=== PATIENT | male | born 1995 | race Caucasian/White ===

== ENCOUNTER 2016-10-10 12:51 | Emergency (ER) | payer OTHER ==
[2016-10-10 12:56] VITALS: BP 142/64; PULSE 110; TEMP 98; BMI 24.2
[2016-10-10] MEDS ORDERED: IBUPROFEN 400 MG TABLET (FP) PO ONE ×2 (13:11→13:13)
--- NOTE | 2016-10-10 13:22 | PDOC ---
History of Present Illness - General Chief Complaint: Injury Stated Complaint: LT SHOULDER PAIN Time Seen by Provider: 10/10/16 13:02 History Source: Patient Exam Limitations: No Limitations - History of Present Illness Initial Comments: 10/10/16 13:14 21 yr male with injury to right shoulder today fell walking up the stairs. no head trauma. Occurred: reports: just prior to arrival Severity: reports: moderate Pain Location: reports: upper extremity (right shoulder) Method of Injury: Yes: fall Loss of Consciousness: no loss of consciousness Past History - Travel Traveled outside of the country in the last 30 days: No Close contact w/someone who was outside of country & ill: No - Past Medical History Allergies/Adverse Reactions: Allergies Allergy/AdvReac Type Severity Reaction Status Date / Time No Known Allergies Allergy Verified 10/10/16 12:53 Home Medications: Ambulatory Orders NK [No Known Home Medication] 10/10/16 Asthma: Yes - Psycho/Social/Smoking Cessation Hx Suicidal Ideation: No Smoking History: Current every day smoker Have you smoked in the past 12 months: Yes Number of Cigarettes Smoked Daily: 20 Information on smoking cessation initiated: Yes 'Breaking Loose' booklet given: 10/10/16 Hx Alcohol Use: No Drug/Substance Use Hx: No Substance Use Type: None *Physical Exam - Vital Signs Last Vital Signs Temp Pulse Resp BP Pulse Ox 98.0 F 110 H 18 142/64 100 10/10/16 12:53 10/10/16 12:53 10/10/16 12:53 10/10/16 12:53 10/10/16 12:53 - Physical Exam General Appearance: Yes: Nourished, Appropriately Dressed HEENT: positive: EOMI, PRABHAKAR, TMs Normal, Pharynx Normal Neck: positive: Supple Respiratory/Chest: positive: Lungs Clear, Normal Breath Sounds Cardiovascular: positive: Regular Rhythm, Regular Rate Extremity: positive: Normal Capillary Refill, Normal Inspection, Tender ( anterior humeral head right side) Integumentary: positive: Normal Color, Dry, Warm Neurologic: positive: Fully Oriented, Alert, Normal Mood/Affect, Normal Response , Motor Strength 5/5 Procedures - Splinting Sling: Yes (right arm ) ED Treatment Course - RADIOLOGY Radiology Studies Ordered: Category Date Time Status SHOULDER-RIGHT [RAD] Stat Radiology 10/10/16 13:11 Ordered Medical Decision Making - Medical Decision Making 10/10/16 14:16 cc: right arm shoulder injury s/p fall will xray to r/o fracture nv intact pain limiting ROM however pt is able to extend at 90 degrees and slightly abduct *DC/Admit/Observation/Transfer Diagnosis at time of Disposition: Shoulder contusion Qualifiers: Encounter type: initial encounter Laterality: right Qualified Code(s): S40.011A - Contusion of right shoulder, initial encounter - Discharge Dispostion Disposition: HOME Condition at time of disposition: Good - Referrals Referrals: Brady Michaud MD [Staff Physician] - - Patient Instructions Additional Instructions: apply ice every 2hrs for 20 minutes for the next 2 days while awake take ibuprofen 800mg every 6hrs for pain as needed use the sling while awake, remove to sleep and bathe, Do not drive with sling in place for the next 2 days follow with the orthopedist for follow up in 3-5 days if symptoms worsen or persist
== END 2016-10-10 14:21 | disposition home or self-care (01) ==
LOC: JERFT 12:51
DX: S40.011A Contusion of right shoulder, initial encounter (principal); W10.8XXA Fall (on) (from) other stairs and steps, initial encounter; Y93.89 Activity, other specified; Y92.89 Other specified places as the place of occurrence of the external cause; F17.210 Nicotine dependence, cigarettes, uncomplicated
CPT/HCPCS: 73030-TC-RT; 99281-25

== ENCOUNTER 2016-10-20 15:05 | Emergency (ER) | payer OTHER ==
[2016-10-20 15:11] VITALS: BP 130/87; TEMP 99.6; BMI 23.5
[2016-10-20] MEDS ORDERED: IBUPROFEN 600 MG TABLET (FP) PO ONE ×3 (16:04→16:21)
--- NOTE | 2016-10-20 16:04 | PDOC ---
History of Present Illness - General Chief Complaint: Back Pain Stated Complaint: BACK PAIN Time Seen by Provider: 10/20/16 15:35 History Source: Patient Exam Limitations: No Limitations - History of Present Illness Initial Comments: 10/20/16 16:04 My chief complaint: lower back bilaterally that radiates upward slightly yesterday and dry cough for a few days with slight sore throat and low-grade fever today. History of present illness: Patient is a 21-year-old male with h/o asthma and opiate addiction that he reports one year last use of Percocet one year ago. Patient reports that he used heroin 1 month ago intranasally. Patient woke up yesterday with lower back pain that radiates upward slightly that is severe worse with coughing and movement. Patient denies any radiation of pain down the legs or any numbness of legs or saddle anesthesia or incontinency. Patient denies any heavy lifting or any injury that could've caused lower back pain. Patient denies a history of lower back pain. Patient's father gave him gabapentin 600 mg yesterday for his back pain. He reports that he took one Xanax yesterday because he wanted to get into a drug treatment program in [place] however went there and was not able to get in due to being in [facility] resident with a [facility] insurance. Patient didn't adamantly denies taking more than one Xanax yesterday or previously. He reports that his sole goal in taking the Xanax yesterday was to test positive to be able to get into a detox drug program. Patient parents wants him to go to detox and drug treatment program however patient does not think that he needs a detox program since he has not been using daily for approximately one month. He denies any drinking. He reports having slight sore throat. Patient denies any sick contacts or recent travel. She reports the pain in his back currently as a 10 out of 10 did not take anything for pain today and is worse with sitting or coughing. He denies any shortness of breath. Patient denies sitting or lying on the same position without moving for long hours or any swelling of his extremities or any history of DVTs or PEs. Pt. goes to [facility] program due to being arrested few months ago. 10/20/16 16:07 10/20/16 16:12 10/20/16 16:13 10/20/16 17:47 Timing/Duration: getting worse Severity: severe (lower back pain ) Associated Symptoms: reports: cough, other (lower back pain b/l radiates upwards slightly b/l since yesterday ) Past History - Past Medical History Allergies/Adverse Reactions: Allergies Allergy/AdvReac Type Severity Reaction Status Date / Time Penicillins Allergy Verified 10/20/16 15:09 Home Medications: Ambulatory Orders Ibuprofen 600 mg PO Q6H PRN #18 tablet 10/20/16 Asthma: Yes Psychiatric Problems: Yes (anxiety) - Psycho/Social/Smoking Cessation Hx Suicidal Ideation: No Smoking History: Current every day smoker Have you smoked in the past 12 months: Yes Number of Cigarettes Smoked Daily: 20 Information on smoking cessation initiated: No 'Breaking Loose' booklet given: 10/10/16 Hx Alcohol Use: No Drug/Substance Use Hx: No Substance Use Type: None Review of Systems - Review of Systems Able to Perform ROS?: Yes Constitutional: No: Symptoms Reported HEENTM: Yes: Symptoms Reported, Throat Pain (slight) Respiratory: Yes: Cough. No: Shortness of Breath, SOB with Exertion, SOB at Rest, Stridor, Wheezing, Productive cough Cardiac (ROS): No: Symptoms Reported ABD/GI: No: Symptoms Reported : No: Symptoms Reported Musculoskeletal: Yes: Back Pain (b/l lumbar radiates to upper lumbar/lower thoracic b/l) Integumentary: No: Symptoms Reported Neurological: No: Symptoms reported *Physical Exam - Vital Signs Last Vital Signs Temp Pulse Resp BP Pulse Ox 99.6 F 132 H 18 130/87 98 10/20/16 15:09 10/20/16 15:09 10/20/16 15:09 10/20/16 15:10/20/16 15:09 - Physical Exam General Appearance: Yes: Appropriately Dressed HEENT: positive: TMs Normal, Pharyngeal Erythema, Nasal Congestion. negative: Tonsillar Exudate, Tonsillar Erythema, Rhinorrhea Neck: negative: Lymphadenopathy (R), Lymphadenopathy (L) Respiratory/Chest: positive: Lungs Clear, Normal Breath Sounds. negative: Chest Tender, Respiratory Distress Cardiovascular: positive: Regular Rhythm, Regular Rate, S1, S2 Gastrointestinal/Abdominal: positive: Normal Bowel Sounds, Soft. negative: Tender, Organomegaly, Increased Bowel Sounds, Distended, Guarding, Rebound, Tenderness, Hepatomegaly, Spleenomegaly Musculoskeletal: positive: Normal Inspection, Decreased Range of Motion (from waist ), Other (b/l lumbar/thoracic paraspinal muscle tenderness). negative: CVA Tenderness, CVA Tenderness (R), CVA Tenderness (L), Vertebral Tenderness Extremity: positive: Normal Capillary Refill, Normal Inspection, Normal Range of Motion. negative: Tender, Swelling Integumentary: positive: Normal Color Neurologic: positive: Alert, Normal Response, Motor Strength 5/5 (motor strength 4/5), Respond to painful stimul (b/l legs ), Responsive, Other ( negative SLR b/l ). negative: Sensory Deficit (b/l legs) Deep Tendon Reflexes: Knee (L): 3+, Knee (R): 3+ Medical Decision Making - Medical Decision Making 10/20/16 16:12 Patient is a 21-year-old male with h/o asthma and opiate addiction that he reports one year last use of Percocet one year ago. Patient reports that he used heroin 1 month ago intranasally. Patient woke up yesterday with lower back pain that radiates upward slightly that is severe worse with coughing and movement. Patient denies any radiation of pain down the legs or any numbness of legs or saddle anesthesia or incontinency. Patient denies any heavy lifting or any injury that could've caused lower back pain. Patient denies a history of lower back pain. Patient's father gave him gabapentin 600 mg yesterday for his back pain. He reports that he took one Xanax yesterday because he wanted to get into a drug treatment program in [place] however went there and was not able to get in due to being in [facility] resident with a [facility] insurance. Patient didn't adamantly denies taking more than one Xanax yesterday or previously. He reports that his sole goal in taking the Xanax yesterday was to test positive to be able to get into a detox drug program. Patient parents wants him to go to detox and drug treatment program however patient does not think that he needs a detox program since he has not been using daily for approximately one month. He denies any drinking. He reports having slight sore throat. Patient denies any sick contacts or recent travel. He reports the pain in his back currently as a 10 out of 10 did not take anything for pain today and is worse with sitting or coughing. He denies any shortness of breath. Patient denies sitting or lying on the same position without moving for long hours or any swelling of his extremities or any history of DVTs or PEs. Pt. requesting urine toxicology. Pt. is with his father who is with him and wants him to go to detox/rehab today. He refuses to have his blood drawn will not be able to go to detox without medical clearance patient adamantly refuses low grade oral temp, tachycardia due to dehydration dry cough, nasal congestion r/o influenza A or B r.o strep throat pharyngitis h/o opioid use lower back pain b/l PLAN: EKG CBC with diff refused CMP refused mg refused SW from ER Caroline came to speak to pt. ibuprofen 600 mg po now urine toxicology influenza A & B rapid negative throat C & S negative ibuprofen 600 mg po now than every 6 hrs prn pain # 18 follow up with orthopedist 10/20/16 16:14 10/20/16 16:24 10/20/16 16:34 10/20/16 17:26 list of NA meeting given and out pt Substance Use Clinics 10/20/16 17:29 10/20/16 18:10 pt was given one picture of water to drink pulse currently 98 will discharge to home Laboratory Tests 10/20/16 16:14 Opiates Screen Negative Methadone Screen Negative Barbiturate Screen Negative Phencyclidine Screen Negative Ur Amphetamines Screen Negative MDMA (Ecstasy) Screen Negative Benzodiazepines Screen Positive Cocaine Screen Negative U Marijuana (THC) Screen Negative 10/20/16 18:11 10/20/16 18:12 10/20/16 18:12 *DC/Admit/Observation/Transfer Diagnosis at time of Disposition: History of opioid abuse Back pain Qualifiers: Back pain location: low back pain Chronicity: acute Back pain laterality: bilateral Sciatica presence: without sciatica Qualified Code(s): M54.5 - Low back pain - Discharge Dispostion Disposition: HOME Condition at time of disposition: Stable - Prescriptions Prescriptions: Ibuprofen 600 mg PO Q6H PRN #18 tablet PRN Reason: Pain - Referrals Referrals: Arturo Wood MD [Staff Physician] - - Patient Instructions Additional Instructions: May follow up with orthopedist if pain continues in lower back avoid any strenuous activities or exercise You may follow up with outpatient substance abuse programs is given to you and NA meetings Return to emergency room if pain worsens or any numbness of groin or legs Patient voiced understanding of discharge instructions and all questions were answered
[2016-10-20 18:02] LABS: URINE MARIJUANA THC NEGATIVE ng/ml (CUTOFF=50)
[2016-10-20 18:12] VITALS: PULSE 98
[2016-10-20 21:17] LABS: URINE APPEARANCE CLEAR; URINE BILIRUBIN NEGATIVE (NEGATIVE); URINE BLOOD NEGATIVE (NEGATIVE); URINE COLOR LTYELLOW; URINE GLUCOSE (UA) NEGATIVE (NEGATIVE); URINE KETONE NEGATIVE (NEGATIVE); URINE LEUK ESTERASE NEGATIVE (NEGATIVE); URINE NITRITE NEGATIVE (NEGATIVE); URINE PROTEIN NEGATIVE (NEGATIVE); URINE UROBILINOGEN NEGATIVE E.U./dl (0.2-1.0)
== END 2016-10-20 18:27 | disposition home or self-care (01) ==
LOC: JERFT 15:05
DX: M54.5 Low back pain (principal); F11.10 Opioid abuse, uncomplicated
CPT/HCPCS: 80307; 81003; 87070; 87430; 87804; 99281-25

== ENCOUNTER 2017-04-09 10:37 | Emergency (ER) | payer OTHER ==
[2017-04-09 10:40] VITALS: BP 138/97; PULSE 107; TEMP 99; BMI 21.9
[2017-04-09] MEDS ORDERED: KETOROLAC TROMETHAMINE 60 MG/2 ML VIAL IM ONE (11:29)
[2017-04-09] MEDS ORDERED: KETOROLAC TROMETHAMINE 60 MG/2 ML VIAL ONE (11:31)
[2017-04-09] MEDS ORDERED: IBUPROFEN 600 MG TABLET (FP) PO ONE (11:34)
--- NOTE | 2017-04-09 11:37 | PDOC ---
History of Present Illness - General Chief Complaint: Pain Stated Complaint: RT THUMB, FINGER NUMBNESS Time Seen by Provider: 04/09/17 11:13 History Source: Patient Exam Limitations: No Limitations - History of Present Illness Initial Comments: 04/09/17 11:31 21 yr male with right arm pain to neck for 4 days after waking up with pain, burning sensation to right arm and numbness to the right first and second finger. Pt denies fall. no SOB or chest pain . Pt also c/o pain to the right 4th digit. no medical history or allergies. Severity: mild Past History - Past Medical History Allergies/Adverse Reactions: Allergies Allergy/AdvReac Type Severity Reaction Status Date / Time Penicillins Allergy Verified 04/09/17 10:40 Home Medications: Ambulatory Orders Cyclobenzaprine HCl [Flexeril -] 5 mg PO TID PRN #21 tablet 04/09/17 Naproxen [Naprosyn -] 500 mg PO BID PRN #28 tablet 04/09/17 Asthma: Yes Psychiatric Problems: Yes (anxiety) - Psycho/Social/Smoking Cessation Hx Anxiety: Yes Suicidal Ideation: No Smoking History: Never smoked Have you smoked in the past 12 months: Yes Number of Cigarettes Smoked Daily: 20 'Breaking Loose' booklet given: 10/10/16 Hx Alcohol Use: No Drug/Substance Use Hx: No Substance Use Type: Marijuana Review of Systems - Review of Systems Able to Perform ROS?: Yes Is the patient limited Romansh proficient: No Constitutional: No: Symptoms Reported HEENTM: No: Symptoms Reported Respiratory: No: Symptoms reported Cardiac (ROS): No: Symptoms Reported ABD/GI: No: Symptoms Reported : No: Symptoms Reported Musculoskeletal: Yes: See HPI *Physical Exam - Vital Signs Last Vital Signs Temp Pulse Resp BP Pulse Ox 99.0 F 107 H 20 138/97 100 04/09/17 10:37 04/09/17 10:37 04/09/17 10:37 04/09/17 10:37 04/09/17 10:37 - Physical Exam General Appearance: Yes: Nourished, Appropriately Dressed HEENT: positive: EOMI, PRABHAKAR, Normal ENT Inspection, TMs Normal, Pharynx Normal Neck: positive: Supple, Tender lateral (right side). negative: Tender, Tender midline, Thyromegaly Respiratory/Chest: positive: Lungs Clear, Normal Breath Sounds. negative: Chest Tender Cardiovascular: positive: Regular Rhythm, Regular Rate Gastrointestinal/Abdominal: positive: Normal Bowel Sounds, Soft Musculoskeletal: positive: Normal Inspection Extremity: positive: Normal Capillary Refill, Normal Inspection, Normal Range of Motion, Tender (4th finger right hand at the mcp , nv intact to the right first and second digit, decreased sensation), Other (FROM right arm, shoulder, pain reporduced to the right trapezius muscle ) Integumentary: positive: Normal Color, Dry, Warm Neurologic: positive: Fully Oriented, Alert, Normal Mood/Affect, Normal Response , Motor Strength 12/16 ED Treatment Course - RADIOLOGY Radiology Studies Ordered: Category Date Time Status FINGER(S) RIGHT [RAD] Stat Radiology 04/09/17 11:29 Ordered SPINE-CERVICAL [RAD] Stat Radiology 04/09/17 11:29 Ordered Medical Decision Making - Medical Decision Making 04/09/17 11:35 cc: right neck pain with right shoulder pain to fingers with numbness to first and second digit started after wakin gup after sleeping on the arm 4 days ago pt has neck pain reproducable with movement and touch 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 will get xray of neck and right finger that is tender with ROM motrin for pain 04/09/17 11:39 04/09/17 19:51 negative xrays dc inst given to pt who agrees with plan of care all questions asked and answered 04/09/17 19:51 *DC/Admit/Observation/Transfer Diagnosis at time of Disposition: Neck pain, acute, Cervical radiculopathy, Pain of finger of right hand - Discharge Dispostion Disposition: HOME Condition at time of disposition: Good - Prescriptions Prescriptions: Cyclobenzaprine HCl [Flexeril -] 5 mg PO TID PRN #21 tablet PRN Reason: Muscle Spasms Naproxen [Naprosyn -] 500 mg PO BID PRN #28 tablet PRN Reason: Pain - Referrals Referrals: Jessica Lawrence MD [Primary Care Provider] - Arturo Wood MD [Staff Physician] - - Patient Instructions Additional Instructions: take motrin as directed for pain take flexeril for muscle spasm as needed apply warm compresses to the area of pain every 3-4 hrs for 20 minutes follow with the orthopedist Dr. Wood for follow up this week see if your pillow and mattress are comfortable or this can make symptoms worse
== END 2017-04-09 11:54 | disposition home or self-care (01) ==
LOC: JERFT 10:37
PROC: 3E0233Z Introduction of Anti-inflammatory into Muscle, Percutaneous Approach (ICD-10-PCS; principal; 2017-04-09)
DX: M54.12 Radiculopathy, cervical region (principal)
CPT/HCPCS: 72050-TC; 73140-TC-RT; 96372; 99281-25

== ENCOUNTER 2017-04-10 19:20 | Emergency (ER) | payer OTHER ==
[2017-04-10 19:39] VITALS: TEMP 98.2; BMI 21.9
[2017-04-10] MEDS ORDERED: IBUPROFEN 600 MG TABLET (FP) PO ONE ×2 (21:48→22:17)
--- NOTE | 2017-04-10 21:51 | PDOC ---
History of Present Illness - General History Source: Patient Exam Limitations: No Limitations <Stephani Sparks - Last Filed: 04/11/17 06:18> - General History Source: Patient Exam Limitations: No Limitations - History of Present Illness Initial Comments: 04/10/17 21:58 The patient is a 21 year old male with significant past medical history of asthma who presents to the ED for less than 24 hours of bilateral lower abdominal pain, suprapubic pain, hematuria and dysuria.. Patient reports he was in his usual state of health prior to going to bed last night when he woke up around 4am with bilateral abdominal pain and suprapubic pain. Patient reports associated dysuria and hematuria. Denies nausea, vomiting, or diarrhea. Denies testicular pain or penile discharge. Denies flank pain. Patient states having no history of kidney stones or UTI in the past. The patient denies fever, chills, diaphoresis, cough, SOB, chest pain, and palpitations. Patient was seen here yesterday for right neck pain and right shoulder pain, where he was treated and discharged with flexeril and naprosyn. States he last took both medications prior to going to work this morning around 4am. Allergies: penicillin Social History: No alcohol, tobacco, or drug use reported. Past Surgical History: None reported PCP: Dr. Jessica Lawrence <Shivani Norman - Last Filed: 04/11/17 06:31> - General Chief Complaint: Hematuria Stated Complaint: HEMATURIA Past History - Past Medical History Asthma: Yes Psychiatric Problems: Yes (anxiety) - Psycho/Social/Smoking Cessation Hx Anxiety: Yes Suicidal Ideation: No Smoking History: Never smoked Have you smoked in the past 12 months: Yes Number of Cigarettes Smoked Daily: 20 Information on smoking cessation initiated: No 'Breaking Loose' booklet given: 10/10/16 Hx Alcohol Use: No Drug/Substance Use Hx: No Substance Use Type: Marijuana <Stephani Sparks - Last Filed: 04/11/17 06:18> <Shivani Norman - Last Filed: 04/11/17 06:31> - Past Medical History Allergies/Adverse Reactions: Allergies Allergy/AdvReac Type Severity Reaction Status Date / Time Penicillins Allergy Verified 04/10/17 19:39 Home Medications: Ambulatory Orders Cyclobenzaprine HCl [Flexeril -] 5 mg PO TID PRN #21 tablet 04/09/17 Naproxen [Naprosyn -] 500 mg PO BID PRN #28 tablet 04/09/17 Sulfamethoxazole/Trimethoprim [Bactrim Ds -] 1 tab PO BID #14 tablet 04/11/17 Review of Systems - Review of Systems Able to Perform ROS?: Yes Comments:: 04/10/17 21:58 GENERAL/CONSTITUTIONAL: No fever or chills. No weakness. HEAD, EYES, EARS, NOSE AND THROAT: No change in vision. No ear pain or discharge. No sore throat. CARDIOVASCULAR: No chest pain or shortness of breath. RESPIRATORY: No cough, wheezing, or hemoptysis. GASTROINTESTINAL: +bilateral lower abdominal pain, suprapubic pain No nausea, vomiting, diarrhea or constipation. GENITOURINARY: +dysuria, hematuria MUSCULOSKELETAL: No joint or muscle swelling or pain. No neck or back pain. SKIN: No rash NEUROLOGIC: No headache, vertigo, loss of consciousness, or change in strength/ sensation. ENDOCRINE: No increased thirst. No abnormal weight change. HEMATOLOGIC/LYMPHATIC: No anemia, easy bleeding, or history of blood clots. ALLERGIC/IMMUNOLOGIC: No hives or skin allergy. <Shivani Norman - Last Filed: 04/11/17 06:31> *Physical Exam - Vital Signs Last Vital Signs Temp Pulse Resp BP Pulse Ox 98.2 F 87 18 121/72 99 04/10/17 19:34 04/10/17 19:34 04/10/17 19:34 04/10/17 19:34 04/10/17 19:34 <Stephani Sparks - Last Filed: 04/11/17 06:18> - Vital Signs Last Vital Signs Temp Pulse Resp BP Pulse Ox 98.2 F 87 18 121/72 99 04/10/17 19:34 04/10/17 19:34 04/10/17 19:34 04/10/17 19:34 04/10/17 19:34 - Physical Exam Comments: 04/10/17 21:58 GENERAL: Awake, alert, and fully oriented, in no acute distress HEAD: No signs of trauma EYES: PERRLA, EOMI, sclera anicteric, conjunctiva clear ENT: Auricles normal inspection, hearing grossly normal, nares patent, oropharynx clear without exudates. Moist mucosa NECK: Normal ROM, supple, no lymphadenopathy, JVD, or masses LUNGS: Breath sounds equal, clear to auscultation bilaterally. No wheezes, and no crackles HEART: Regular rate and rhythm, normal S1 and S2, no murmurs, rubs or gallops ABDOMEN: Soft, bilateral lower quadrants tenderness, surprapubic tenderness, normoactive bowel sounds. No guarding, no rebound. No masses MUSCULOSKELETAL: Right CVA tenderness EXTREMITIES: Normal range of motion, no edema. No clubbing or cyanosis. No cords, erythema, or tenderness NEUROLOGICAL: Cranial nerves II through XII grossly intact. Normal speech, normal gait SKIN: Warm, Dry, normal turgor, no rashes or lesions noted. <Shivani Norman - Last Filed: 04/11/17 06:31> Procedures - Bedside Ultrasound Other: renal us <Stephani Sparks - Last Filed: 04/11/17 06:18> ED Treatment Course - LABORATORY CBC & Chemistry Diagram: 04/11/17 03:30 04/11/17 03:30 <Stephani Sparks - Last Filed: 04/11/17 06:18> - LABORATORY CBC & Chemistry Diagram: 04/11/17 03:30 04/11/17 03:30 - RADIOLOGY Radiograph Interpretation: 04/11/17 00:37 EXAM: CT abdomen and pelvis without contrast Reviewed by Imaging staff occupational therapist: FINDINGS: Lung bases are clear. The visualized cardiac chambers are normal size and configuration. Normal unenhanced liver, gallbladder, pancreas, spleen, adrenal glands and kidneys. The stomach and abdominal small and large bowel are normal. There is no aortic aneurysm. There is no significant retroperitoneal lymphadenopathy. The pelvic small and large bowel are normal. There is a tiny appendicolith but no appendiceal inflammation The urinary bladder and prostate gland are normal. No pelvic free fluid is identified. There is no significant pelvic lymphadenopathy. IMPRESSION: No localizing signs for acute pathology. 04/11/17 06:31 EXAM: CT abdomen and pelvis with contrast Reviewed by Imaging staff occupational therapist: FINDINGS:Lung bases are clear. The visualized cardiac chambers are normal size and configuration. Normal liver, gallbladder, pancreas, spleen, adrenal glands and kidneys. The stomach and abdominal small and large bowel are normal. There is no aortic aneurysm. There is no significant retroperitoneal lymphadenopathy. The pelvic small and large bowel are normal. There is no evidence of appendicitis, although an appendicolith is noted. The urinary bladder and prostate gland are normal. No pelvic free fluid is identified. There is no significant pelvic lymphadenopathy. IMPRESSION: No acute pathology. <Shivani Norman - Last Filed: 04/11/17 06:31> Medical Decision Making - Medical Decision Making 04/10/17 21:49 21 yo M with no pmhx here with c/o bilat lower abd pain, suprapubic pain, dysuria, and hematuria. started today. no flank pain. no n/v nof/c no new sexual encounters. no testicular pain. no penile dc. no h/o uti. on exam awake alert lungs clear heart rrr no mrg abd soft bilat lower quad ttp, suprapubic ttp. no rebound, no guarding. right cva ttp. ext wwp skin warm and dry. plan differential uti, renal colic, plan ua labs bedside renal us. 04/11/17 04:33 focused ED ultrasound renal , indication hematuria, findings: bilateral kidneys scanned in two planes. no hydronephrosis noted. bladder nondistendd. impression: normal renal ultrasound. raisa 04/11/17 06:15 ct with appendicolith otherwise normal due to rlq ttp, pt rescanned with iv contrast. still no signs of appendicitis. only appendicolith. dc with tx for uti due to sxs of dysuria and hematuria. given azithromycin 2 g to treat any potential std. ( pt pcn allergic ) fu urology. 04/11/17 06:18 <Stephani Sparks - Last Filed: 04/11/17 06:18> *DC/Admit/Observation/Transfer - Discharge Dispostion Admit: No <Stephani Sparks - Last Filed: 04/11/17 06:18> - Attestations Scribe Attestion: 04/10/17 21:59 Documentation prepared by Shivani Norman, acting as medical librarian for Stephani Sparks MD <Shivani Norman - Last Filed: 04/11/17 06:31> Diagnosis at time of Disposition: UTI (urinary tract infection), Hematuria - Prescriptions Prescriptions: Sulfamethoxazole/Trimethoprim [Bactrim Ds -] 1 tab PO BID #14 tablet - Referrals Referrals: Jessica Lawrence MD [Primary Care Provider] - Parish Mathews MD [Staff Physician] - - Patient Instructions Printed Discharge Instructions: Urinary Tract Infection Additional Instructions: you should take bactrim twice daily x 7 days. folllow up with urologist ( call dR Mathews to schedule see referral info) to be sure that the blood in your urine resolves. copie of your ct scan is attached to show your doctor as well as blood work. return for worsening pain, fever or any concerns. take ibuprofn 600 mg every 8 hours as needed for pain. - Post Discharge Activity Work/School Note: Back to Work
[2017-04-10 21:53] LABS: URINE APPEARANCE CLOUDY; URINE BILIRUBIN NEGATIVE (NEGATIVE); URINE BLOOD 3+ (NEGATIVE); URINE COLOR YELLOW; URINE GLUCOSE (UA) NEGATIVE (NEGATIVE); URINE KETONE NEGATIVE (NEGATIVE); URINE LEUK ESTERASE NEGATIVE (NEGATIVE); URINE NITRITE NEGATIVE (NEGATIVE); URINE UROBILINOGEN NEGATIVE mg/dL (0.2-1.0)
[2017-04-10 22:03] LABS: URINE PROTEIN 1+ (NEGATIVE)
[2017-04-10 22:04] LABS: URINE MUCUS MODERATE; URINE RBC 1109 /hpf (0-3); URINE WBC 30 /hpf (3-5)
[2017-04-10 22:33] LABS: BASOPHIL 0.4 % (0-2.0); EOSINOPHIL 2.2 % (0-4.5); MCH 28.7 pg (25.7-33.7); MCHC 33.5 g/dl (32.0-35.9); MEAN CELL VOLUME 85.7 fl (80-96); MEAN PLT VOLUME 8.5 fl (7.5-11.1); NEUTROPHILS 61.3 % (42.8-82.8); PLATELET COUNT 317 K/MM3 (134-434); RDW 13.1 % (11.9-15.9); WHITE BLOOD COUNT 10.1 K/mm3 (4.0-10.0)
[2017-04-10 23:00] LABS: ALBUMIN 4.2 g/dl (3.4-5.0); ANION GAP 6 (8-16); BILIRUBIN,TOTAL 0.3 mg/dL (0.2-1.0); CALCIUM 9.7 mg/dL (8.5-10.1); CO2 26 mmol/L (21-32); CREATININE 0.9 mg/dL (0.7-1.3); GLUCOSE,RANDOM 83 mg/dL (74-106); SGOT/AST 9 U/L (15-37); SGPT/ALT 17 U/L (12-78)
[2017-04-10 23:01] LABS: ALK PHOS 55 U/L (45-117)
[2017-04-11] MEDS ORDERED: KETOROLAC TROMETHAMINE 30 MG/1 ML VIAL IVPUSH ONE (01:15)
[2017-04-11] MEDS ORDERED: SULFAMETHOXAZOLE/TRIMETHOPRIM 800MG/160MG D.S. TABLET PO ONE (01:16)
[2017-04-11] MEDS ORDERED: SULFAMETHOXAZOLE/TRIMETHOPRIM 800MG/160MG D.S. TABLET ONE (02:27)
[2017-04-11] MEDS ORDERED: KETOROLAC TROMETHAMINE 30 MG/1 ML VIAL ONE ×2 (02:27→02:32)
[2017-04-11] MEDS ORDERED: SODIUM CHLORIDE 0.9% 1000 ML INFUS.BAG IV ONE (03:09)
[2017-04-11] MEDS ORDERED: morphine CARPU-JECT 4 MG/1 ML DISP.SYRIN IVPUSH ONE (03:15)
[2017-04-11] MEDS ORDERED: morphine CARPU-JECT 10 MG/1 ML DISP.SYRIN ONE (03:18)
[2017-04-11 03:40] LABS: BASOPHIL 0.7 % (0-2.0); EOSINOPHIL 2.6 % (0-4.5); MCH 28.7 pg (25.7-33.7); MCHC 33.6 g/dl (32.0-35.9); MEAN CELL VOLUME 85.5 fl (80-96); MEAN PLT VOLUME 8.5 fl (7.5-11.1); NEUTROPHILS 54.5 % (42.8-82.8); PLATELET COUNT 264 K/MM3 (134-434); WHITE BLOOD COUNT 7.8 K/mm3 (4.0-10.0)
[2017-04-11 04:46] LABS: ALBUMIN 4.2 g/dl (3.4-5.0); ANION GAP 5 (8-16); BILIRUBIN,TOTAL 0.3 mg/dL (0.2-1.0); CALCIUM 9.4 mg/dL (8.5-10.1); CO2 28 mmol/L (21-32); CREATININE 0.8 mg/dL (0.7-1.3); GLUCOSE,RANDOM 82 mg/dL (74-106); SGOT/AST 11 U/L (15-37); SGPT/ALT 19 U/L (12-78); TOT PROT 6.8 g/dl (6.4-8.2)
[2017-04-11 04:47] LABS: ALK PHOS 53 U/L (45-117)
[2017-04-11] MEDS ORDERED: AZITHROMYCIN 1 GM PACKET PO ONE (06:18)
[2017-04-11] MEDS ORDERED: AZITHROMYCIN 250 MG TABLET (FP) ONE (06:34)
[2017-04-11] MEDS ORDERED: AZITHROMYCIN 1 GM PACKET ONE (06:35)
[2017-04-11 06:42] VITALS: BP 118/76; PULSE 69
== END 2017-04-11 06:43 | disposition home or self-care (01) ==
LOC: JER 19:20
PROC: 3E033NZ Introduction of Analgesics, Hypnotics, Sedatives into Peripheral Vein, Percutaneous Approach (ICD-10-PCS; principal; 2017-04-10)
PROC: 3E0333Z Introduction of Anti-inflammatory into Peripheral Vein, Percutaneous Approach (ICD-10-PCS; 2017-04-10)
DX: N39.0 Urinary tract infection, site not specified (principal); R31.9 Hematuria, unspecified
CPT/HCPCS: 36415; 74176; 74177-TC; 80053; 81003; 81015; 85025; 96374; 96375; 99282-25; Q9967

== ENCOUNTER 2017-04-11 16:59 | Emergency (ER) | payer OTHER ==
[2017-04-11 17:05] VITALS: BP 123/93; PULSE 108; TEMP 98.3; BMI 21.9
--- NOTE | 2017-04-11 17:51 | PDOC ---
History of Present Illness - General Chief Complaint: Pain, Acute Stated Complaint: URINARY PROBLEM Time Seen by Provider: 04/11/17 17:28 - History of Present Illness Initial Comments: 04/11/17 17:51 Mr. Robledo is a 21 year old male with a significant past medical history of asthma and recent visit for abdominal pain (d/c this AM) who presents to the emergency department with severe abdominal pain starting this AM 2 hours after he returned home from the ER. He reports that the pain has been increasing throughout the day and was not helped by naproxen. 2 days ago he woke up at 4am with bilateral abdominal pain and suprapubic pain, dysuria, and hematuria. He then presented to the ER for his original workup. The patient denies chest pain, shortness of breath, headache and dizziness. Denies fever, chills, nausea, vomit, diarrhea and constipation. Denies current dysuria, frequency, urgency or hematuria. Allergies: Penicillins Past surgical history: Tonsillectomy Social history:Current 1/2 - 1 ppd smoker (4 year history). 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 No weakness. HEAD, EYES, EARS, NOSE AND THROAT: No change in vision. No ear pain or discharge. No sore throat. CARDIOVASCULAR: No chest pain or shortness of breath RESPIRATORY: No cough, wheezing, or hemoptysis. GASTROINTESTINAL: +Severe abdominal pain reported constantly throughout the day. No nausea, vomiting, diarrhea or constipation. GENITOURINARY: No dysuria, frequency, or change in urination. MUSCULOSKELETAL: No joint or muscle swelling or pain. No neck or back pain. SKIN: No rash NEUROLOGIC: No headache, vertigo, loss of consciousness, or change in strength/ sensation. ENDOCRINE: No increased thirst. No abnormal weight change HEMATOLOGIC/LYMPHATIC: No anemia, easy bleeding, or history of blood clots. ALLERGIC/IMMUNOLOGIC: +Evidence of psoriasis. No hives or skin allergy. *Physical Exam - Vital Signs Last Vital Signs Temp Pulse Resp BP Pulse Ox 98.3 F 108 H 18 123/93 100 04/11/17 17:01 04/11/17 17:01 04/11/17 17:01 04/11/17 17:01 04/11/17 17:01 - Physical Exam Comments: 04/11/17 17:51 GENERAL: Awake, alert, and fully oriented, in no acute distress HEAD: No signs of trauma, normocephalic, atraumatic EYES: PERRLA, EOMI, sclera anicteric, conjunctiva clear ENT: Auricles normal inspection, hearing grossly normal, nares patent, oropharynx clear without exudates. Moist mucosa NECK: Normal ROM, supple, no lymphadenopathy, JVD, or masses LUNGS: No distress, speaks full sentences, clear to auscultation bilaterally HEART: Regular rate and rhythm, normal S1 and S2, no murmurs, rubs or gallops, peripheral pulses normal and equal bilaterally. ABDOMEN: +Acutely tender with guarding in RLQ and bilateral upper quadrants. Pain radiates to R flank. Normoactive bowel sounds. EXTREMITIES: Normal inspection, Normal range of motion, no edema. No clubbing or cyanosis. NEUROLOGICAL: Cranial nerves II through XII grossly intact. Normal speech, normal gait, no focal sensorimotor deficits SKIN: Warm, Dry, normal turgor, no rashes or lesions noted. ED Treatment Course - LABORATORY CBC & Chemistry Diagram: 04/11/17 18:12 04/11/17 18:12 Medical Decision Making - Medical Decision Making 04/11/17 19:03 Patient presented in pain following d/c this AM at 0700. Pain has increased acutely. Will repeat labs and ultrasound appendix to look for changes. 4mg morphine and fluid given for pain control. Signing out to incoming team; will recommend admit for obs at the very least if no cause of pain found. *DC/Admit/Observation/Transfer Diagnosis at time of Disposition: Abdominal pain Qualifiers: Abdominal location: generalized Qualified Code(s): R10.84 - Generalized abdominal pain
--- NOTE | 2017-04-11 17:56 | PDOC ---
Attending Attestation - Resident Resident Name: Gabo Gomez - ED Attending Attestation I have performed the following: I have examined & evaluated the patient, The case was reviewed & discussed with the resident, I agree w/resident's findings & plan, Exceptions are as noted - HPI HPI: 21 yo M no significant PMH presents with RLQ abdominal pain. He states that he was having gross hematuria, then developed R lower abdominal pain. He was seen in the emergency department on the overnight shift, initially had a non-con CT to r/o stone, then a repeat CT with contrast for possible appy. He was noted to have an appendicolith. Now he states that he is feeling much worse and the pain has worsened. He is not vomiting. No f/c, diarrhea. No prior similar symptoms. No prior history of hematuria. - Physicial Exam PE: GENERAL: Awake, alert, and fully oriented, in no acute distress HEAD: No signs of trauma EYES: PERRLA, EOMI, sclera anicteric, conjunctiva clear ENT: Auricles normal inspection, hearing grossly normal, nares patent, oropharynx clear without exudates. Moist mucosa NECK: Normal ROM, supple, no lymphadenopathy, JVD, or masses LUNGS: Breath sounds equal, clear to auscultation bilaterally. No wheezes, and no crackles HEART: Regular rate and rhythm, normal S1 and S2, no murmurs, rubs or gallops ABDOMEN: Soft, +RLQ tenderness with guarding, normoactive bowel sounds. No rebound. No masses. +R flank tenderness. EXTREMITIES: Normal range of motion, no edema. No clubbing or cyanosis. No cords, erythema, or tenderness NEUROLOGICAL: Cranial nerves II through XII grossly intact. Normal speech, normal gait SKIN: Warm, Dry, normal turgor, no rashes or lesions noted. - Medical Decision Making Pt evaluated on the overnight shift for abdominal pain, pain is now worsening. D /w Dr. Sparks, who saw him in ED earlier, and his exam appears to be worse compared to prior. Will obtain ultrasound of his appendix, likely admit for abdominal pain and serial exams at the least.
[2017-04-11 18:33] LABS: BASOPHIL 0.4 % (0-2.0); MCH 28.5 pg (25.7-33.7); MCHC 33.6 g/dl (32.0-35.9); MEAN CELL VOLUME 84.9 fl (80-96); MEAN PLT VOLUME 8.4 fl (7.5-11.1); NEUTROPHILS 66.9 % (42.8-82.8); PLATELET COUNT 282 K/MM3 (134-434); WHITE BLOOD COUNT 9.8 K/mm3 (4.0-10.0)
[2017-04-11 18:35] LABS: URINE APPEARANCE SLCLOUDY; URINE BILIRUBIN NEGATIVE (NEGATIVE); URINE BLOOD 1+ (NEGATIVE); URINE COLOR LTYELLOW; URINE GLUCOSE (UA) NEGATIVE (NEGATIVE); URINE KETONE NEGATIVE (NEGATIVE); URINE LEUK ESTERASE NEGATIVE (NEGATIVE); URINE NITRITE NEGATIVE (NEGATIVE); URINE PROTEIN NEGATIVE (NEGATIVE); URINE UROBILINOGEN NEGATIVE mg/dL (0.2-1.0)
[2017-04-11] MEDS ORDERED: SODIUM CHLORIDE 1,000 ML IV STA (19:00)
[2017-04-11] MEDS ORDERED: morphine CARPU-JECT 4 MG/1 ML DISP.SYRIN IVPUSH ONE (19:00)
[2017-04-11] MEDS ORDERED: morphine CARPU-JECT 10 MG/1 ML DISP.SYRIN ONE ×2 (19:02→20:14)
[2017-04-11 19:05] LABS: ALBUMIN 4.5 g/dl (3.4-5.0); ANION GAP 4 (8-16); CALCIUM 9.4 mg/dL (8.5-10.1); CO2 29 mmol/L (21-32); CREATININE 0.9 mg/dL (0.7-1.3); GLUCOSE,RANDOM 74 mg/dL (74-106); SGOT/AST 12 U/L (15-37); SGPT/ALT 18 U/L (12-78)
[2017-04-11 19:06] LABS: ALK PHOS 53 U/L (45-117); BILIRUBIN,TOTAL 0.5 mg/dL (0.2-1.0); TOT PROT 6.8 g/dl (6.4-8.2)
[2017-04-11] MEDS ORDERED: morphine CARPU-JECT 2 MG/1 ML DISP.SYRIN IVPUSH ONE (19:59)
[2017-04-11 20:01] LABS: CALCIUM OXALATE CRYSTALS RARE /hpf (NONE SEEN); URINE MUCUS RARE; URINE RBC 17 /hpf (0-3); URINE WBC 1 /hpf (3-5)
--- NOTE | 2017-04-11 22:03 | PDOC ---
*Physical Exam - Vital Signs Last Vital Signs Temp Pulse Resp BP Pulse Ox 98.3 F 108 H 18 123/93 100 04/11/17 17:01 04/11/17 17:01 04/11/17 17:01 04/11/17 17:01 04/11/17 17:01 ED Treatment Course - LABORATORY CBC & Chemistry Diagram: 04/11/17 18:12 04/11/17 18:12 - ADDITIONAL ORDERS Additional order review: Laboratory Results 04/11/17 04/11/17 04/11/17 18:14 18:12 18:12 Sodium 138 Potassium 4.6 Chloride 105 Carbon Dioxide 29 Anion Gap 4 L BUN 10 Creatinine 0.9 Creat Clearance w eGFR > 60 Random Glucose 74 Calcium 9.4 Total Bilirubin 0.5 D AST 12 L ALT 18 Alkaline Phosphatase 53 Total Protein 6.8 Albumin 4.5 Lipase 113 Urine Color Ltyellow Urine Appearance Slcloudy Urine pH 6.0 Ur Specific Gary 1.025 Urine Protein Negative Urine Glucose (UA) Negative Urine Ketones Negative Urine Blood 1+ H Urine Nitrite Negative Urine Bilirubin Negative Urine Urobilinogen Negative Ur Leukocyte Esterase Negative Urine RBC 17 Urine WBC 1 Calcium Oxalate Crystal Rare Urine Mucus Rare 04/11/17 18:12 RBC 5.10 MCV 84.9 MCHC 33.6 RDW 13.0 MPV 8.4 Neutrophils % 66.9 D Lymphocytes % 24.7 D Monocytes % 6.0 Eosinophils % 2.0 Basophils % 0.4 - Medications Given in the ED: ED Medications Discontinued Medications Generic Name Dose Route Start Last Admin Trade Name Freq PRN Reason Stop Dose Admin Sodium Chloride 1,000 mls @ 1,000 mls/hr 04/11/17 19:00 04/11/17 19:06 Normal Saline - IV 04/11/17 19:59 1,000 mls/hr ASDIR STA Administration Morphine Sulfate 4 mg 04/11/17 19:00 04/11/17 19:05 Morphine Injection - IVPUSH 04/11/17 19:01 4 mg ONCE ONE Administration Morphine Sulfate 6 mg 04/11/17 19:59 04/11/17 20:39 Morphine Injection - IVPUSH 04/11/17 20:00 6 mg ONCE ONE Administration Medical Decision Making - Medical Decision Making 04/11/17 22:04 pt states he is feeling better. Pt states he will follow up with his doctor tomorrow. *DC/Admit/Observation/Transfer Diagnosis at time of Disposition: Abdominal pain Qualifiers: Abdominal location: generalized Qualified Code(s): R10.84 - Generalized abdominal pain - Discharge Dispostion Disposition: HOME Condition at time of disposition: Stable Admit: No - Prescriptions Prescriptions: Tramadol HCl [Ultram -] 50 mg PO Q6H #20 tablet MDD 4 - Referrals Referrals: Jessica Lawrence MD [Primary Care Provider] - - Patient Instructions Printed Discharge Instructions: DI for Abdominal Pain-Adult - Post Discharge Activity
== END 2017-04-11 22:05 | disposition home or self-care (01) ==
LOC: JER 16:59
PROC: 3E0337Z Introduction of Electrolytic and Water Balance Substance into Peripheral Vein, Percutaneous Approach (ICD-10-PCS; principal; 2017-04-11)
PROC: 3E033NZ Introduction of Analgesics, Hypnotics, Sedatives into Peripheral Vein, Percutaneous Approach (ICD-10-PCS; 2017-04-11)
DX: R10.84 Generalized abdominal pain (principal); F41.9 Anxiety disorder, unspecified
CPT/HCPCS: 36415; 76856-TC; 80053; 81003; 81015; 83690; 85025; 96361; 96374; 96376; 99283-25

== ENCOUNTER 2017-04-21 18:57 | Emergency (ER) | payer OTHER ==
[2017-04-21 19:09] VITALS: BP 114/66; PULSE 96; TEMP 98.1; BMI 23.5
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
[2017-04-21] MEDS ORDERED: diazePAM 5 MG TABLET PO ONE (20:06)
[2017-04-21] MEDS ORDERED: diazePAM 5 MG TABLET ONE (20:08)
== END 2017-04-21 21:43 | disposition home or self-care (01) ==
LOC: JERFT 18:57
DX: M54.6 Pain in thoracic spine (principal)
CPT/HCPCS: 71020-TC; 99281-25

== ENCOUNTER 2017-04-29 09:03 | Emergency (ER) | payer OTHER ==
--- NOTE | 2017-04-29 09:09 | PDOC ---
History of Present Illness - General History Source: Patient, EMS Exam Limitations: No Limitations - History of Present Illness Initial Comments: 04/29/17 09:39 The patient is a 22 year old male, with significant past medical history of heroin use , BIBA after his parents suspected a drug overdose because he was difficult to wake up this morning. The patient states that he snorted heroin around 10 or 11pm last night when he went out for his birthday and wanted to have fun. He notes that he graduated from a court mandated class after overdosing from heroin in the past, and this is the first time he's used heroin since. He denies any other drug use. He does not have any other complaints at this time and states that he is annoyed and only here because his parents called the ambulance. Denies fever, chills, nausea, vomiting, diarrhea. Denies abdominal pain. Denies chest pain, SOB. Allergies: penicillin Social Hx: heroin use. Denies any other drug use. Denies alcohol use. Family Hx: lives at home with parents <Nika Coyle - Last Filed: 04/29/17 09:39> <Mariaelena Eckert - Last Filed: 04/29/17 15:05> - General Stated Complaint: POSSIBLE DRUG OVERDOSE Time Seen by Provider: 04/29/17 09:09 Past History <Nika Coyle - Last Filed: 04/29/17 09:39> - Past Medical History Asthma: Yes Psychiatric Problems: Yes (anxiety) - Psycho/Social/Smoking Cessation Hx Anxiety: Yes Suicidal Ideation: No Smoking History: Never smoked Have you smoked in the past 12 months: Yes Number of Cigarettes Smoked Daily: 20 'Breaking Loose' booklet given: 04/11/17 Hx Alcohol Use: No Drug/Substance Use Hx: Yes (hx of opiates abuse) Substance Use Type: None <Mariaelena Eckert - Last Filed: 04/29/17 15:05> - Past Medical History Allergies/Adverse Reactions: Allergies Allergy/AdvReac Type Severity Reaction Status Date / Time Penicillins Allergy Verified 04/29/17 09:15 Home Medications: Ambulatory Orders Naproxen [Naprosyn -] 500 mg PO BID PRN #28 tablet 04/09/17 Cyclobenzaprine HCl [Flexeril 10 mg] 10 mg PO BID PRN #20 tablet 04/21/17 Ibuprofen 800 mg PO ASDIR 04/21/17 Review of Systems - Review of Systems Able to Perform ROS?: Yes Comments:: 04/29/17 09:39 GENERAL/CONSTITUTIONAL: No fever or chills. No weakness. HEAD, EYES, EARS, NOSE AND THROAT: No change in vision. No ear pain or discharge. No sore throat. GASTROINTESTINAL: No nausea, vomiting, diarrhea or constipation. GENITOURINARY: No dysuria, frequency, or change in urination. CARDIOVASCULAR: No chest pain or shortness of breath. RESPIRATORY: No cough, wheezing, or hemoptysis. MUSCULOSKELETAL: No joint or muscle swelling or pain. No neck or back pain. SKIN: No rash NEUROLOGIC: No headache, vertigo, loss of consciousness, or change in strength/ sensation. ENDOCRINE: No increased thirst. No abnormal weight change. HEMATOLOGIC/LYMPHATIC: No anemia, easy bleeding, or history of blood clots. ALLERGIC/IMMUNOLOGIC: No hives or skin allergy. <Nika Coyle - Last Filed: 04/29/17 09:39> *Physical Exam - Vital Signs Last Vital Signs Temp Pulse Resp BP Pulse Ox 98.4 F 120 H 12 145/85 97 04/29/17 09:15 04/29/17 09:31 04/29/17 09:31 04/29/17 09:15 04/29/17 09:31 - Physical Exam Comments: 04/29/17 09:40 Constitutional: Awake, alert, oriented. No acute distress. Head: Normocephalic. Atraumatic Eyes: Pupils are 2mm bilaterally, equil, round, and reactive. EOMI. Conjunctivae are not pale. ENT: Mucous membranes are moist and intact. Posterior pharynx without exudates or erythema. Uvula midline. Neck: Supple. Full ROM. No lymphadenopathy. Cardiovascular: +tachycardic. Regular rhythm. S1, S2 regular. Distal pulses are 2+ and symmetric. Pulmonary/Chest: No evidence of respiratory distress. Clear to auscultation bilaterally. No wheezing, rales or rhonchi. Abdominal: Soft and non-distended. There is notenderness. No rebound, guarding or rigidity. No organomegaly. No palpable masses. Good bowel sounds. Back: No CVA tenderness. Musculoskeletal: No edema. No cyanosis. No clubbing. Full range of motion in all extremities. No calf tenderness. Radial/pedal pulses are intact and 2+ bilaterally Skin: +psoriasis on the back. Skin is warm and dry. No petechiae. No purpura. Neurological: Alert and oriented to person, place, and time. Cranial nerves II -XII are grossly intact. Normal speech. Strength is grossly symmetric. No sensory deficits. Psychiatric: Good eye contact. Normal interaction, affect and behavior. <Nika Coyle - Last Filed: 04/29/17 09:39> Heart Score/ECG Review - ECG Intrepretation Comment:: 04/29/17 10:03 sinus tach at 106, nl axis, nl interval, t wave inversions III nonspecific, no acute changes <Mariaelena Eckert - Last Filed: 04/29/17 15:05> ED Treatment Course - Medications Given in the ED: ED Medications Discontinued Medications Generic Name Dose Route Start Last Admin Trade Name Freq PRN Reason Stop Dose Admin Ondansetron HCl 4 mg 04/29/17 09:24 04/29/17 09:31 Zofran Injection IVPUSH 04/29/17 09:25 4 mg ONCE ONE Administration Sodium Chloride 1,000 ml 04/29/17 09:24 04/29/17 09:30 Normal Saline - IV 04/29/17 09:25 1,000 ml ONCE ONE Administration <Nika Coyle - Last Filed: 04/29/17 09:39> Medical Decision Making - Medical Decision Making 04/29/17 10:01 a/p: 22yo male with heroin use yesterday -pt brought by EMS because fam felt the patient was difficult to arouse this AM. -admits to 3 bags heroin use yesterday. -pt awake, ambulatory -tachy -will check ekg, hydrate (states hasn't eaten since yesterday) -utox -re-eval 04/29/17 11:21 pt resting comfortably. easily arousable 04/29/17 14:06 re-eval: pt drug screen reviewed. pt still sleepy, arousable . no narcan needed at this time. 04/29/17 15:04 pt awake, sitting up. eating lunch. no complaints. steady gait. tolerated po. stable for d/c to home. discussed stopping drug use and heroin use. Pt has gone to "drug school" in the past and said he graduated a couple months ago. Pt will follow up with PMD. Answered all questions. <Mariaelena Eckert - Last Filed: 04/29/17 15:05> *DC/Admit/Observation/Transfer - Attestations Scribe Attestion: 04/29/17 09:40 Documentation prepared by ROLANDO Felton, acting as director medical economics for Mariaelena Eckert DO. <Nika Coyle - Last Filed: 04/29/17 09:39> - Discharge Dispostion Admit: No - Attestations Physician Attestion: 04/29/17 10:02 I, Dr. Mariaelena Eckert DO, attest that this document has been prepared under my direction and personally reviewed by me in its entirety. I further attest, that it accurately reflects all work, treatment, procedures and medical decision -making performed by me. <Mariaelena Eckert - Last Filed: 04/29/17 15:05> Diagnosis at time of Disposition: Heroin use - Discharge Dispostion Disposition: HOME Condition at time of disposition: Stable - Referrals Referrals: Jessica Lawrence MD [Primary Care Provider] - - Patient Instructions Additional Instructions: Please stop using drugs. Please return to the ED with any further complaints. Please follow up with your PMD.
[2017-04-29 09:20] VITALS: TEMP 98.4; BMI 22.7
[2017-04-29] MEDS ORDERED: ONDANSETRON 4 MG/2 ML VIAL IVPUSH ONE (09:24)
[2017-04-29] MEDS ORDERED: SODIUM CHLORIDE 0.9% 1000 ML INFUS.BAG IV ONE (09:24)
[2017-04-29] MEDS ORDERED: ONDANSETRON 4 MG/2 ML VIAL ONE (09:29)
[2017-04-29] MEDS ORDERED: NALOXONE HCL 0.4 MG/ML VIAL IVPUSH ONE (12:17)
[2017-04-29 13:12] LABS: URINE MARIJUANA THC NEGATIVE ng/ml (CUTOFF=50)
[2017-04-29 15:20] VITALS: BP 143/84; PULSE 108
--- NOTE | 2017-05-01 16:42 | EKG ---
Test Reason : Blood Pressure : / mmHG Vent. Rate : 106 BPM Atrial Rate : 106 BPM P-R Int : 146 ms QRS Dur : 092 ms QT Int : 336 ms P-R-T Axes : 066 072 038 degrees QTc Int : 446 ms SINUS TACHYCARDIA OTHERWISE NORMAL ECG NO PREVIOUS ECGS AVAILABLE Confirmed by MERCY DOWNEY MD ([id number]) on 05/01/2017 4:42:07 PM Referred By: Confirmed By:MERCY DOWNEY MD
== END 2017-04-29 15:20 | disposition home or self-care (01) ==
LOC: JER 09:03
DX: F11.10 Opioid abuse, uncomplicated (principal); F41.9 Anxiety disorder, unspecified; Z87.09 Personal history of other diseases of the respiratory system; F17.210 Nicotine dependence, cigarettes, uncomplicated
CPT/HCPCS: 80307; 93005; 93010; 99285-25

== ENCOUNTER 2017-06-03 23:25 | Emergency (ER) | payer OTHER ==
[2017-06-03 23:55] VITALS: TEMP 98.4; BMI 22.0
--- NOTE | 2017-06-04 00:16 | PDOC ---
History of Present Illness - General Chief Complaint: Overdose Stated Complaint: OVERDOSE Time Seen by Provider: 06/03/17 23:32 History Source: Patient, Parent(s) (Father) Exam Limitations: No Limitations - History of Present Illness Initial Comments: 06/04/17 00:11 22yo Male patient w/ PmHx: Substance Abuse Disorder (Heroin, and Opiates) presented to ED via EMS. Patient states he used 3 bags of heroin today ( inhalation) tonight while in his bedroom. Father states he went to check on him and found him to be breathing weird. Father states he tried for 8-10 mins to arouse patient but could not, so he call 911. Upon arrival EMS/PD administered 2mg of intranasal Narcan with positive response. Patient is alert and awake at this time. He denies n/v/d, fever, CP, diff breathing, abd pain, back pain, or any other complaints at this time. Father (Omari) phone number is: [phone]. Past History - Travel Traveled outside of the country in the last 30 days: No Close contact w/someone who was outside of country & ill: No - Past Medical History Allergies/Adverse Reactions: Allergies Allergy/AdvReac Type Severity Reaction Status Date / Time Penicillins Allergy Verified 06/03/17 23:52 Home Medications: Ambulatory Orders Naproxen [Naprosyn -] 500 mg PO BID PRN #28 tablet 04/09/17 Cyclobenzaprine HCl [Flexeril 10 mg] 10 mg PO BID PRN #20 tablet 04/21/17 Ibuprofen 800 mg PO ASDIR 04/21/17 Asthma: Yes Psychiatric Problems: Yes (anxiety) - Suicide/Smoking/Psychosocial Hx Smoking History: Unknown if ever smoked Have you smoked in the past 12 months: Yes Number of Cigarettes Smoked Daily: 20 Information on smoking cessation initiated: No 'Breaking Loose' booklet given: 04/11/17 Hx Alcohol Use: Yes Drug/Substance Use Hx: Yes Substance Use Type: None Review of Systems - Review of Systems Able to Perform ROS?: Yes Is the patient limited Lao proficient: No Psychiatric: Yes: Other (Drug overdose) All Other Systems: Reviewed and Negative *Physical Exam - Vital Signs Last Vital Signs Temp Pulse Resp BP Pulse Ox 98.4 F 95 H 14 127/81 98 06/03/17 23:52 06/03/17 23:52 06/03/17 23:52 06/03/17 23:52 06/03/17 23:52 - Physical Exam General Appearance: Yes: Nourished, Appropriately Dressed. No: Apparent Distress, Mild Distress, Moderate Distress, Severe Distress HEENT: positive: EOMI, PRABHAKAR, Normal ENT Inspection, Normal Voice, Symmetrical, TMs Normal, Pharynx Normal. negative: Pharyngeal Erythema, Tonsillar Exudate, Tonsillar Erythema, Nasal Congestion, Rhinorrhea, Sinus Tenderness, Orbits, TM Bulging, TM Dull, TM Erythema Neck: positive: Trachea midline, Normal Thyroid, Supple. negative: Lymphadenopathy (R), Lymphadenopathy (L), Tender lateral, Tender midline Respiratory/Chest: positive: Lungs Clear, Normal Breath Sounds. negative: Chest Tender, Respiratory Distress, Accessory Muscle Use, Labored Respiration, Rapid RR Cardiovascular: positive: Regular Rhythm, Regular Rate Gastrointestinal/Abdominal: positive: Normal Bowel Sounds, Soft. negative: Distended, Guarding, Rebound, Tenderness Musculoskeletal: positive: Normal Inspection. negative: CVA Tenderness Extremity: positive: Normal Capillary Refill, Normal Inspection, Normal Range of Motion. negative: Pedal Edema, Swelling, Calf Tenderness, Erythema, Inflammation Integumentary: positive: Normal Color, Dry, Warm Neurologic: positive: nurse practitioner per diem II-XII NML intact, Fully Oriented, Alert, Normal Mood/ Affect, Normal Response, Motor Strength 5/5 *DC/Admit/Observation/Transfer Diagnosis at time of Disposition: Accidental overdose of heroin Qualifiers: Encounter type: initial encounter Qualified Code(s): T40.1X1A - Poisoning by heroin, accidental (unintentional), initial encounter - Discharge Dispostion Disposition: HOME Condition at time of disposition: Improved Admit: No - Patient Instructions Printed Discharge Instructions: DI for Drug Overdose in Adults Additional Instructions: Follow up with rehab, and social service information I have provided you. Return if worsening or symptoms or any concerns for further evaluation. Print Language: STATELESS
--- NOTE | 2017-06-04 00:20 | PDOC ---
*Physical Exam - Vital Signs Last Vital Signs Temp Pulse Resp BP Pulse Ox 98.4 F 95 H 14 127/81 98 06/03/17 23:52 06/03/17 23:52 06/03/17 23:52 06/03/17 23:52 06/03/17 23:52 - Physical Exam Comments: 06/04/17 00:17 Alert, standing by stretcher Normal respiratory rate, normal O2 sat Psoriatic skin changes that are chronic Lungs are clear Medical Decision Making - Medical Decision Making 06/04/17 00:19 Patient seen and evaluated with the nurse practitioner. I agree with the overall evaluation, assessment, and management with the following summary of visit: 22-year-old male with history of heroin use presents brought in by EMS after requiring resuscitation with Narcan after heroin use. Now alert, remorseful, denies any acute psychiatric complaints Observe, dispo accordingly. Offer detox/rehab Dad at bedside. 06/04/17 02:43 asleep, RR 12, lungs clear. Will continue monitoring then expect [facility] transfer *DC/Admit/Observation/Transfer Diagnosis at time of Disposition: Accidental overdose of heroin Qualifiers: Encounter type: initial encounter Qualified Code(s): T40.1X1A - Poisoning by heroin, accidental (unintentional), initial encounter - Discharge Dispostion Condition at time of disposition: Improved
[2017-06-04 06:55] VITALS: BP 128/54; PULSE 76
--- NOTE | 2017-06-04 10:50 | EKG ---
Test Reason : Blood Pressure : / mmHG Vent. Rate : 084 BPM Atrial Rate : 084 BPM P-R Int : 150 ms QRS Dur : 090 ms QT Int : 368 ms P-R-T Axes : 064 075 042 degrees QTc Int : 434 ms NORMAL SINUS RHYTHM WITH SINUS ARRHYTHMIA RSR' OR QR PATTERN IN V1 SUGGESTS RIGHT VENTRICULAR CONDUCTION DELAY NORMAL ECG WHEN COMPARED WITH ECG OF 29-APR-2017 09:59, T WAVE AMPLITUDE HAS DECREASED IN ANTERIOR LEADS CLINICAL CORRELATION IS RECOMMENDED BASELINE ARTIFACT Confirmed by VIRIDIANA LEVIN MD ([id number]) on 06/04/2017 10:50:30 AM Referred By: Confirmed By:VIRIDIANA LEVIN MD
== END 2017-06-04 06:55 | disposition home or self-care (01) ==
LOC: JER 23:25
DX: T40.1X1A Poisoning by heroin, accidental (unintentional), initial encounter (principal); Y92.013 Bedroom of single-family (private) house as the place of occurrence of the external cause
CPT/HCPCS: 93005; 93010; 99283-25

== ENCOUNTER 2017-09-13 06:24 | Emergency (ER) | payer OTHER ==
[2017-09-13] MEDS ORDERED: IBUPROFEN 400 MG TABLET (FP) PO ONE ×2 (07:46→07:54)
[2017-09-13 08:00] VITALS: BP 142/90; PULSE 97; TEMP 97.9; BMI 23.3
--- NOTE | 2017-09-13 08:20 | PDOC ---
History of Present Illness - General History Source: Patient Exam Limitations: No Limitations - History of Present Illness Initial Comments: 09/13/17 08:21 22 y.o male with significant past medical history of heroin and opioid abuse, who presents today complaining of left shoulder and left sided neck pain that began 3 days ago when a computer in his work vehicle accidentally fell on top of his left shoulder. He reports decreased range of motion in his left shoulder secondary to the pain. The patient notes that he has been experiencing some neck stiffness and pain since the injury. Denies numbness and tingling down the upper and lower extremities. Denies lower back pain. Denies headache, fever. Allergies: Penicillin Social Hx: Tobacco use. Heroin and opioid abuse(reports last use approximately 1 month ago). No alcohol use. <Nika Coyle - Last Filed: 09/13/17 08:21> <Margarito Maldonado - Last Filed: 09/13/17 09:19> - General Chief Complaint: Head/Neck problem Stated Complaint: PAIN,NECK/SHOULDER Time Seen by Provider: 09/13/17 07:36 Past History <Nika Coyle - Last Filed: 09/13/17 08:21> - Past Medical History Asthma: Yes COPD: No Psychiatric Problems: Yes (anxiety) - Suicide/Smoking/Psychosocial Hx Smoking History: Unknown if ever smoked Have you smoked in the past 12 months: Yes Number of Cigarettes Smoked Daily: 20 Information on smoking cessation initiated: No 'Breaking Loose' booklet given: 04/11/17 Hx Alcohol Use: No Drug/Substance Use Hx: No Substance Use Type: None <Margarito Maldonado - Last Filed: 09/13/17 09:19> - Past Medical History Allergies/Adverse Reactions: Allergies Allergy/AdvReac Type Severity Reaction Status Date / Time Penicillins Allergy Verified 09/13/17 07:40 Home Medications: Ambulatory Orders Ibuprofen 800 mg PO ASDIR 04/21/17 Review of Systems - Review of Systems Able to Perform ROS?: Yes Comments:: 09/13/17 08:23 CONSTITUTIONAL: No fever, no chills, no fatigue EYES: No visual changes ENT: No ear pain, no sore throat CARDIOVASCULAR: No chest pain, no palpitations RESPIRATORY: No cough, no SOB GI: No abdominal pain, no nausea, no vomiting, no constipation, no diarrhea GENITOURINARY: No dysuria, no frequency, no hematuria MUSKULOSKELETAL: +left shoulder pain, left neck pain. SKIN: No rash NEURO: No headache <LeonidesNika - Last Filed: 09/13/17 08:21> *Physical Exam - Vital Signs Last Vital Signs Temp Pulse Resp BP Pulse Ox 97.9 F 97 H 18 142/90 100 09/13/17 07:40 09/13/17 07:40 09/13/17 07:40 09/13/17 07:40 09/13/17 07:40 - Physical Exam Comments: 09/13/17 08:23 CONSTITUTIONAL: Well-appearing; well-nourished; in no apparent distress HEAD: Normocephalic; atraumatic EYES: PERRL; EOM intact ENMT: External appears normal; normal oropharynx NECK: Supple; +There is midline tenderness to palpation to C2-C5. No obvious deformity, no crepitus. no cervical lymphadenopathy CARD: Normal S1, S2; no murmurs, rubs, or gallops RESP: Normal chest excursion with respiration; breath sounds clear and equal bilaterally; no wheezes, rhonchi, or rales SKIN: Warm, dry, no rash NEURO: Nonfocal neurological deficiencies. <LeonidesNika - Last Filed: 09/13/17 08:21> - Vital Signs Last Vital Signs Temp Pulse Resp BP Pulse Ox 97.9 F 97 H 18 142/90 100 09/13/17 07:40 09/13/17 07:40 09/13/17 07:40 09/13/17 07:40 09/13/17 07:40 - Physical Exam Comments: PE cont: EXTR: LUE: No obvious deformity; tenderness to palpation along the anterior aspect of the shoulder joint with pain on abduction and extension of the right arm, there is also pain on external and internal rotation at the shoulder joint. There is mild tenderness to palpation along the entire left trapezius; neurovascularly intact distally; no other deformity or injury noted to right upper extremity, or lower extremity is bilaterally; there is no edema/asymmetry/ tenderness to palpation. <Margarito Maldonado - Last Filed: 09/13/17 09:19> ED Treatment Course - Medications Given in the ED: ED Medications Discontinued Medications Generic Name Dose Route Start Last Admin Trade Name Freq PRN Reason Stop Dose Admin Ibuprofen 800 mg 09/13/17 07:46 09/13/17 08:16 Motrin - PO 09/13/17 07:47 800 mg ONCE ONE Administration <Nika Coyle - Last Filed: 09/13/17 08:21> - RADIOLOGY Radiology Studies Ordered: Category Date Time Status SHOULDER-LEFT [RAD] Stat Radiology 09/13/17 07:46 Taken SPINE-CERVICAL [RAD] Stat Radiology 09/13/17 07:46 Taken - Medications Given in the ED: ED Medications Discontinued Medications Generic Name Dose Route Start Last Admin Trade Name Freq PRN Reason Stop Dose Admin Ibuprofen 800 mg 09/13/17 07:46 09/13/17 08:16 Motrin - PO 09/13/17 07:47 800 mg ONCE ONE Administration <Margarito Maldonado - Last Filed: 09/13/17 09:19> Medical Decision Making - Medical Decision Making 09/13/17 09:17 Patient is a well-appearing 22-year-old male with previous medical history of oral. Abuse who presents to the ER with signs and symptoms of left shoulder bursitis/tendinitis. I do not suspect septic arthritis at this time. Patient is afebrile and although the range of motion is limited, I am able to passively obtain adequate range of motion at the left shoulder. Cervical spine and left shoulder x-rays reveal no evidence of fracture dislocation. Will discharge with NSAIDs, sling, early mobilization and orthopedic follow-up. <Margarito Maldonado - Last Filed: 09/13/17 09:19> *DC/Admit/Observation/Transfer - Attestations Scribe Attestion: 09/13/17 08:23 Documentation prepared by ROLANDO Felton, acting as clinical specialist medical device for Margarito Maldonado MD. <Nika Coyle - Last Filed: 09/13/17 08:21> - Attestations Physician Attestion: 09/13/17 09:09 The documentation was prepared by the scribe under my direct supervision. I have reviewed the documentation which correctly represents the findings, medical decision-making and critical action taken by me. <Margarito Maldonado - Last Filed: 09/13/17 09:19> Diagnosis at time of Disposition: Left shoulder pain Qualifiers: Chronicity: acute Qualified Code(s): M25.512 - Pain in left shoulder - Discharge Dispostion Disposition: HOME Condition at time of disposition: Stable - Referrals Referrals: Jessica Lawrence MD [Primary Care Provider] - Ryland Wolf MD [Staff Physician] - - Patient Instructions Printed Discharge Instructions: DI for Shoulder Sprain Additional Instructions: Please take ibuprofen for pain, use sling for a limited period of time and try to mobilize the shoulder as much as possible. Follow-up with orthopedics. Return immediately for fever, worsening symptoms. - Post Discharge Activity
== END 2017-09-13 09:42 | disposition home or self-care (01) ==
LOC: JER 06:24
DX: M25.512 Pain in left shoulder (principal); W20.8XXA Other cause of strike by thrown, projected or falling object, initial encounter; Y93.89 Activity, other specified; Y92.69 Other specified industrial and construction area as the place of occurrence of the external cause; Y99.0 Civilian activity done for income or pay
CPT/HCPCS: 72050-TC; 73030-TC-LT; 99282-25

== ENCOUNTER 2018-07-14 14:12 | Emergency (ER) | payer OTHER ==
[2018-07-14 14:24] VITALS: BP 129/68; PULSE 90; TEMP 98.2; BMI 21.8
--- NOTE | 2018-07-14 14:50 | PDOC ---
History of Present Illness - General Chief Complaint: Drug Screen Stated Complaint: DRUG TEST History Source: Patient Exam Limitations: No Limitations - History of Present Illness Initial Comments: 07/14/18 14:45 Patient is a 23 year old male with h/o heroine abuse came with c/o would like to get drug tested. Patient states he sniffed heroine but his feels that he is using other durgs. Last used was yesterday. No other complaints. PMD: Dr. Anna Lawrence PMHX: PSOCHX: (+) 1/2 PPD cig, (-) EtOH, (+) heroine, MJ ALL: PCN GENERAL/CONSTITUTIONAL: [No fever or chills. No weakness. No weight change.] HEAD, EYES, EARS, NOSE AND THROAT: [No change in vision. No ear pain or discharge. No sore throat.] CARDIOVASCULAR: [No chest pain or shortness of breath.] RESPIRATORY: [No cough, wheezing, or hemoptysis.] GASTROINTESTINAL: [No nausea, vomiting, diarrhea or constipation. No rectal bleeding.] GENITOURINARY: [No dysuria, frequency, or change in urination.] MUSCULOSKELETAL: [No joint or muscle swelling or pain. No neck or back pain.] SKIN AND BREASTS: [No rash or easy bruising.] NEUROLOGIC: [No headache, vertigo, loss of consciousness, or loss of sensation.] PSYCHIATRIC: [No depression or anxiety.] ENDOCRINE: [No increased thirst. No abnormal weight change.] HEMATOLOGIC/LYMPHATIC: [No anemia, easy bleeding, or history of blood clots.] ALLERGIC/IMMUNOLOGIC: [No hives or skin allergy. No latex allergy.] GENERAL: [The patient is awake, alert, and fully oriented, in no acute distress. ] HEAD: [Normal with no signs of trauma.] EYES: [Pupils equal, round and reactive to light, extraocular movements intact, sclera anicteric, conjunctiva clear.] ENT: [Ears normal, nares patent, oropharynx clear without exudates. Moist mucous membranes.] NECK: [Normal range of motion, supple without lymphadenopathy, JVD, or masses.] LUNGS: [Breath sounds equal, clear to auscultation bilaterally. No wheezes, and no crackles.] HEART: [Regular rate and rhythm, normal S1 and S2 without murmur, rub.] ABDOMEN: [Soft, nontender, normoactive bowel sounds. No guarding, no rebound. No masses.] EXTREMITIES: [Normal range of motion, no edema. No clubbing or cyanosis. No cords, erythema, or tenderness.] NEUROLOGICAL: [Cranial nerves II through XII grossly intact. Normal speech, normal gait.] PSYCH: [Normal mood, normal affect.] SKIN: [Warm, Dry, normal turgor, no rashes or lesions noted.] Past History - Past Medical History Allergies/Adverse Reactions: Allergies Allergy/AdvReac Type Severity Reaction Status Date / Time Penicillins Allergy Verified 07/14/18 14:21 Home Medications: Ambulatory Orders NK [No Known Home Medication] 07/14/18 Asthma: Yes COPD: No Psychiatric Problems: Yes (anxiety) - Suicide/Smoking/Psychosocial Hx Smoking History: Never smoked Have you smoked in the past 12 months: Yes Number of Cigarettes Smoked Daily: 20 'Breaking Loose' booklet given: 04/11/17 Hx Alcohol Use: No Drug/Substance Use Hx: Yes (pot, heroin) Substance Use Type: Heroin, Marijuana *Physical Exam - Vital Signs Last Vital Signs Temp Pulse Resp BP Pulse Ox 98.2 F 90 18 129/68 95 07/14/18 14:19 07/14/18 14:19 07/14/18 14:19 07/14/18 14:19 07/14/18 14:19 Moderate Sedation - Procedure Monitoring Vital Signs: Procedure Monitoring Vital Signs Temperature 98.2 F 07/14/18 14:19 Pulse Rate 90 07/14/18 14:19 Respiratory Rate 18 07/14/18 14:19 Blood Pressure 129/68 07/14/18 14:19 O2 Sat by Pulse Oximetry (%) 95 07/14/18 14:19 Medical Decision Making - Medical Decision Making 07/14/18 14:45 Patient is a 23 year old male with h/o heroine abuse came with c/o would like to get drug tested. utox 07/14/18 16:03 Patient unable to give urine and wants to be discharged I discussed the physical exam findings, ancillary test results and final diagnoses with the patient. I answered all of the patient's questions. The patient was satisfied with the care received and felt comfortable with the discharge plan and treatment plan. The Patient agrees to follow up with the primary care physician within 24-72 hours. *DC/Admit/Observation/Transfer Diagnosis at time of Disposition: Substance abuse - Discharge Dispostion Disposition: HOME Condition at time of disposition: Stable - Referrals - Patient Instructions Printed Discharge Instructions: DI for Drug Abuse and Drug Addiction Additional Instructions: I discussed the physical exam findings, ancillary test results and final diagnoses with the patient. I answered all of the patient's questions. The patient was satisfied with the care received and felt comfortable with the discharge plan and treatment plan. The Patient agrees to follow up with the primary care physician within 24-72 hours. - Post Discharge Activity
== END 2018-07-14 16:08 | disposition home or self-care (01) ==
LOC: JERFT 14:12 → JER 14:12 → JERFT 16:08
DX: F11.10 Opioid abuse, uncomplicated (principal)
CPT/HCPCS: 99281-25

== ENCOUNTER 2022-07-26 11:27 | Emergency (ER) | payer OTHER ==
[2022-07-26 11:40] VITALS: BP 110/49; PULSE 54; RESP 16; TEMP 98.9; BMI 20.5
[2022-07-26] MEDS ORDERED: IBUPROFEN 600 MG TABLET (FP) PO ONE ×2 (12:03→12:10)
== END 2022-07-26 13:57 | disposition home or self-care (01) ==
LOC: FER 11:27
DX: M25.511 Pain in right shoulder (principal)
CPT/HCPCS: 73030-TC-RT-FY; 99283-25

== ENCOUNTER 2022-11-11 05:43 | Day surgery (SDC) | payer OTHER ==
[2022-11-07 11:59] VITALS: BMI 21.2
[~2022-11-11 05:43] MED LIST: BUPIVACAINE HCL/PF 0.5% (5MG/ML) 10 ML VIAL NR ONE; IOHEXOL 180 MG/1 ML ML IJ ONE; LIDOCAINE 1% P/F 10 MG/ML VIAL PNB ONE
[2022-11-11] MEDS ORDERED: LIDOCAINE HCL/PF 1% SDV 5ML VIAL ONE (07:36)
[2022-11-11] MEDS ORDERED: DEXAMETHASONE SOD PHOSPHATE 10 MG/1 ML VIAL ONE (07:36)
[2022-11-11] MEDS ORDERED: LIDOCAINE HCL/PF 2% SDV 5ML VIAL ONE (07:38)
[2022-11-11 13:56] VITALS: RESP 16
[2022-11-11] MEDS ORDERED: BUPIVACAINE HCL/PF 0.5% (5MG/ML) 10 ML VIAL ONE (14:19)
[2022-11-11] MEDS ORDERED: BUPIVACAINE HCL/PF 0.5% (5MG/ML) 10 ML VIAL NR ONE (14:42)
[2022-11-11] MEDS ORDERED: IOHEXOL 180 MG/1 ML ML IJ ONE (14:42)
[2022-11-11 15:26] VITALS: BP 127/85; PULSE 80; TEMP 98.4
== END 2022-11-11 15:45 | disposition home or self-care (01) ==
LOC: JASU-SURG 05:43
PROVIDERS: ATTEND Pain Medicine Pain Medicine
PROC: 3E0T33Z Introduction of Anti-inflammatory into Peripheral Nerves and Plexi, Percutaneous Approach (ICD-10-PCS; 2022-11-11)
PROC: BR14YZZ Fluoroscopy of Cervical Facet Joint(s) using Other Contrast (ICD-10-PCS; 2022-11-11)
PROC: 3E0T3BZ Introduction of Anesthetic Agent into Peripheral Nerves and Plexi, Percutaneous Approach (ICD-10-PCS; principal; 2022-11-11 15:00)
DX: M47.812 Spondylosis without myelopathy or radiculopathy, cervical region (principal)
CPT/HCPCS: 76000-TC-FY; J1100

== ENCOUNTER 2022-12-09 04:03 | Day surgery (SDC) | payer OTHER ==
[2022-12-07 12:26] VITALS: BMI 21.2
[~2022-12-09 04:03] MED LIST changes: +BUPIVACAINE HCL/PF 0.5% (5MG/ML) 10 ML VIAL IJ ONE; -BUPIVACAINE HCL/PF 0.5% (5MG/ML) 10 ML VIAL NR ONE; -LIDOCAINE 1% P/F 10 MG/ML VIAL PNB ONE; +LIDOCAINE HCL 1% PRESERVATIVE FREE - 30ML VIAL IJ ONE
[2022-12-09] MEDS ORDERED: BUPIVACAINE HCL/PF 0.5% (5MG/ML) 10 ML VIAL ONE ×2 (07:18→07:24)
[2022-12-09] MEDS ORDERED: LIDOCAINE HCL/PF 1% SDV 5ML VIAL ONE ×2 (07:18→07:24)
[2022-12-09] MEDS ORDERED: TRIAMCINOLONE ACET 40MG/1ML VIAL ONE (07:23)
[2022-12-09 12:24] VITALS: RESP 20
[2022-12-09] MEDS ORDERED: LIDOCAINE HCL 1% PRESERVATIVE FREE - 30ML VIAL IJ ONE (12:57)
[2022-12-09] MEDS ORDERED: BUPIVACAINE HCL/PF 0.5% (5MG/ML) 10 ML VIAL IJ ONE (12:57)
[2022-12-09] MEDS ORDERED: IOHEXOL 180 MG/1 ML ML IJ ONE (12:57)
[2022-12-09 13:43] VITALS: BP 124/62; PULSE 77; TEMP 97.8
[2022-12-09] MEDS ORDERED: ACETAMINOPHEN 500 MG TABLET (FP) PO PRN (15:37)
== END 2022-12-09 15:42 | disposition home or self-care (01) ==
LOC: JASU-SURG 04:03
PROVIDERS: ATTEND Pain Medicine Pain Medicine
PROC: 3E0T33Z Introduction of Anti-inflammatory into Peripheral Nerves and Plexi, Percutaneous Approach (ICD-10-PCS; 2022-12-09)
PROC: 3E0T3BZ Introduction of Anesthetic Agent into Peripheral Nerves and Plexi, Percutaneous Approach (ICD-10-PCS; principal; 2022-12-09 13:45)
DX: M47.812 Spondylosis without myelopathy or radiculopathy, cervical region (principal)
CPT/HCPCS: 76000-TC-FY